=== PATIENT | female | born 1965 | race Caucasian/White ===

== ENCOUNTER 2017-06-07 12:19 | Day surgery (SDC) | payer BC ==
[2017-06-07] MEDS ORDERED: PROPOFOL 20 ML (15:32)
[2017-06-07] MEDS ORDERED: FENTAnyl 50 MCG/ML VIAL (15:32)
== END 2017-06-07 20:00 | disposition home or self-care (01) ==
LOC: GIL 12:19
DX: Z12.11 Encounter for screening for malignant neoplasm of colon (principal); K64.8 Other hemorrhoids; E03.9 Hypothyroidism, unspecified
CPT/HCPCS: 45378